=== PATIENT | male | born 1960 | race African-American/Black ===

== ENCOUNTER 2021-01-03 17:03 | Inpatient (IN) ==
[2021-01-03] MEDS ORDERED: Naloxone 0.4 MG/ML INJ IVP PRN (19:50)
[2021-01-03] MEDS ORDERED: Acetaminophen 325 MG TABLET PO PRN (19:50)
[2021-01-03] MEDS ORDERED: Ondansetron ODT 4 MG TAB.RAPDIS SL PRN (19:50)
[2021-01-03 20:33] LABS: Basophils % 0.2 %; Eosinophils % 0.1 %; Hematocrit 35.8 % (37.5-50.1); Hemoglobin 11.6 g/dL (12.9-16.9); Lymphocytes # 2.5 K/mcL (0.6-4.6); Lymphocytes % 20.8 %; Mean Corpuscular HGB Conc 32.4 g/dL (31.6-35.5); Mean Corpuscular Hemoglobin 26.2 pg (28.0-33.3); Mean Platelet Volume 10.2 fL (9.4-12.4); Monocytes # 1.6 K/mcL (0.0-1.3); Monocytes % 13.1 %; Neutrophils # 7.9 K/mcL (1.6-8.9); Platelet Count 254 K/mcL (140-400); Red Blood Count 4.42 M/mcL (4.19-5.50); Red Cell Distribution Width 14.7 % (11.5-14.5); Segmented Neutrophils % 64.8 %; White Blood Count 12.2 K/mcL (4.3-11.1)
[2021-01-03 20:53] LABS: Alanine Aminotransferase 13 Units/L (7-52); Albumin 3.7 g/dL (3.5-5.7); Alkaline Phosphatase 105 Units/L (34-104); Aspartate Amino Transferase 12 Units/L (13-39); BUN/Creatinine Ratio 11 (6-26); Bilirubin,Total 0.2 mg/dL (0.3-1.0); Blood Urea Nitrogen 8 mg/dL (6-20); Calcium 9.1 mg/dL (8.6-10.3); Carbon Dioxide 23 mEq/L (23-29); Chloride 104 mEq/L (98-107); Globulin 3.6 g/dL (2.4-3.5); Glucose 171 mg/dL (70-105); Osmolality,Calculated 288 (280-300); Potassium 4.3 mEq/L (3.5-5.1); Sodium 138 mEq/L (136-145); Total Protein 7.3 g/dL (6.4-8.9); eGFR For African Americans > 60 (> 60); eGFR For Non-African Americans > 60 (> 60)
[2021-01-03 21:38] LABS: Bilirubin,Urine Negative (Negative); Blood,Urine Negative (Negative); Clarity,Urine Clear (Clear); Color,Urine Yellow (Yellow); Glucose,Urine (UA) Normal (Normal); Ketones,Urine Negative (Negative); Leukocyte Esterase,Urine Negative (Negative); Nitrite,Urine Negative (Negative); Protein,Urine Trace mg/dL (Neg-Trace); Specific Gravity,Urine 1.019 (1.010-1.025); Urobilinogen,Urine Normal (Normal)
[2021-01-03] MEDS ORDERED: Ipratropium/Albuterol Neb 3 ML IH PRN (21:47)
[2021-01-03 22:15] LABS: Amphetamine Screen,Urine Negative ng/mL (Cutoff=1000); Barbiturate Screen,Urine Negative ng/mL (Cutoff=200); Benzodiazepines Screen,Urine Positive ng/mL (Cutoff=200); Cannabinoid Screen,Urine Negative ng/mL (Cutoff = 50); Cocaine Screen,Urine Negative ng/mL (Cutoff= 300); Opiate Screen,Urine Negative ng/mL (Cutoff=300); Phencyclidine Screen,Urine Negative ng/mL (Cutoff=25)
[2021-01-04] MEDS: MethylPREDNISolone 40 MG/ML VIAL IVP SCH ×2 (04:59→18:27)
[2021-01-04 07:10] LABS: Hematocrit 33.4 % (37.5-50.1); Hemoglobin 10.7 g/dL (12.9-16.9); Mean Corpuscular Hemoglobin 26.1 pg (28.0-33.3); Mean Corpuscular Volume 81.5 fL (83.0-100.0); Mean Platelet Volume 10.8 fL (9.4-12.4); Platelet Count 239 K/mcL (140-400); Red Cell Distribution Width 14.8 % (11.5-14.5); White Blood Count 9.1 K/mcL (4.3-11.1)
[2021-01-04 07:22] LABS: INR 1.4; Prothrombin Time 15.7 Seconds (9.4-12.1)
[2021-01-04 07:28] LABS: BUN/Creatinine Ratio 8 (6-26); Blood Urea Nitrogen 6 mg/dL (6-20); Calcium 8.9 mg/dL (8.6-10.3); Carbon Dioxide 23 mEq/L (23-29); Chloride 104 mEq/L (98-107); Glucose 148 mg/dL (70-105); Magnesium 1.2 mg/dL (1.6-2.6); Osmolality,Calculated 284 (280-300); Potassium 4.4 mEq/L (3.5-5.1); Sodium 137 mEq/L (136-145); eGFR For African Americans > 60 (> 60); eGFR For Non-African Americans > 60 (> 60)
[2021-01-04 07:40] LABS: Thyroid Stimulating Hormone 0.585 mcIU/mL (0.340-5.600)
[2021-01-04] MEDS ORDERED: *HR* Enoxaparin 30 MG/0.3 ML SYRINGE SQ SCH (09:00)
[2021-01-04] MEDS: levoFLOXacin 750 MG/150 ML 750 MG/150 ML BAG IVPB SCH (09:14)
[2021-01-04] MEDS ORDERED: Magnesium Sulfate 1 GM/102 ML PIGGYBACK IVPB ONE (09:52)
[2021-01-04] MEDS ORDERED: *HR* Dextrose 50 % in Water (Vial) 50 ML VIAL IVP PRN (11:20)
[2021-01-04] MEDS ORDERED: Dextrose Gel 15 GM/37.5 ML TUBE PO PRN ×2 (11:20)
[2021-01-04] MEDS ORDERED: D5% in Water 1,000 ML IVC PRN (11:20)
[2021-01-04] MEDS: Insulin LISPRO 300 UNITS/3 ML VIAL SUBQ SCH ×2 (12:43→17:02)
[2021-01-04] MEDS: Divalproex (24 HR) 500 MG TABLET PO SCH (20:04)
[2021-01-04] MEDS: LOXAPINE SUCCINATE 5 MG PO SCH (20:06)
[2021-01-04] MEDS: Gabapentin 100 MG CAPSULE PO SCH (20:06)
[2021-01-04] MEDS: Insulin DETEMIR 100 UNIT/ML X5UNITS SUBQ SCH (20:12)
[2021-01-05] MEDS: MethylPREDNISolone 40 MG/ML VIAL IVP SCH ×2 (04:53→17:25)
[2021-01-05] MEDS: Insulin LISPRO 300 UNITS/3 ML VIAL SUBQ SCH ×3 (07:50→16:08)
[2021-01-05] MEDS: Multivit/Ca/Min/Fe/FA 1 TAB TABLET PO SCH (07:51)
[2021-01-05] MEDS: Aspirin 81 MG TAB.CHEW PO SCH (07:51)
[2021-01-05] MEDS: amLODIPine 5 MG TABLET PO SCH (07:51)
[2021-01-05] MEDS: lisinopriL 10 MG TABLET PO SCH (07:51)
[2021-01-05] MEDS: Gabapentin 100 MG CAPSULE PO SCH ×2 (07:51→20:19)
[2021-01-05] MEDS: levoFLOXacin 750 MG/150 ML 750 MG/150 ML BAG IVPB SCH (07:52)
[2021-01-05] MEDS: *HR* Enoxaparin 40 MG/0.4 ML SYRINGE SQ SCH (08:02)
[2021-01-05 08:18] LABS: Hematocrit 34.4 % (37.5-50.1); Mean Corpuscular Volume 81.3 fL (83.0-100.0); Mean Platelet Volume 10.5 fL (9.4-12.4); Platelet Count 251 K/mcL (140-400); Red Blood Count 4.23 M/mcL (4.19-5.50); Red Cell Distribution Width 14.6 % (11.5-14.5); White Blood Count 8.3 K/mcL (4.3-11.1)
[2021-01-05 08:38] LABS: BUN/Creatinine Ratio 14 (6-26); Blood Urea Nitrogen 11 mg/dL (6-20); Calcium 9.4 mg/dL (8.6-10.3); Carbon Dioxide 26 mEq/L (23-29); Chloride 102 mEq/L (98-107); Glucose 160 mg/dL (70-105); Magnesium 1.5 mg/dL (1.6-2.6); Osmolality,Calculated 285 (280-300); Potassium 5.3 mEq/L (3.5-5.1); Sodium 136 mEq/L (136-145); eGFR For African Americans > 60 (> 60); eGFR For Non-African Americans > 60 (> 60)
[2021-01-05] MEDS: LOXAPINE SUCCINATE 5 MG PO SCH (10:56)
[2021-01-05] MEDS: Divalproex (24 HR) 500 MG TABLET PO SCH (20:19)
[2021-01-05] MEDS: Insulin DETEMIR 100 UNIT/ML X5UNITS SUBQ SCH (20:20)
[2021-01-06 02:05] LABS: Hematocrit 33.4 % (37.5-50.1); Hemoglobin 11.1 g/dL (12.9-16.9); Mean Corpuscular HGB Conc 33.2 g/dL (31.6-35.5); Mean Corpuscular Hemoglobin 26.9 pg (28.0-33.3); Mean Corpuscular Volume 81.1 fL (83.0-100.0); Mean Platelet Volume 10.6 fL (9.4-12.4); Platelet Count 260 K/mcL (140-400); Red Blood Count 4.12 M/mcL (4.19-5.50); Red Cell Distribution Width 14.6 % (11.5-14.5); White Blood Count 11.1 K/mcL (4.3-11.1)
[2021-01-06 02:30] LABS: BUN/Creatinine Ratio 19 (6-26); Blood Urea Nitrogen 15 mg/dL (6-20); Calcium 9.6 mg/dL (8.6-10.3); Carbon Dioxide 22 mEq/L (23-29); Chloride 99 mEq/L (98-107); Glucose 238 mg/dL (70-105); Magnesium 1.3 mg/dL (1.6-2.6); Osmolality,Calculated 287 (280-300); Potassium 4.9 mEq/L (3.5-5.1); Sodium 134 mEq/L (136-145); eGFR For African Americans > 60 (> 60); eGFR For Non-African Americans > 60 (> 60)
[2021-01-06] MEDS: LOXAPINE SUCCINATE 5 MG PO SCH ×2 (05:27→07:24)
[2021-01-06] MEDS: *HR* Enoxaparin 40 MG/0.4 ML SYRINGE SQ SCH (05:34)
[2021-01-06] MEDS: MethylPREDNISolone 40 MG/ML VIAL IVP SCH ×2 (05:34→16:43)
[2021-01-06] MEDS: Insulin LISPRO 300 UNITS/3 ML VIAL SUBQ SCH ×3 (07:24→16:43)
[2021-01-06] MEDS ORDERED: Magnesium Sulfate 1 GM/102 ML PIGGYBACK IVPB ONE (08:09)
[2021-01-06] MEDS: Gabapentin 100 MG CAPSULE PO SCH ×2 (08:26→20:54)
[2021-01-06] MEDS: amLODIPine 5 MG TABLET PO SCH (08:26)
[2021-01-06] MEDS: Multivit/Ca/Min/Fe/FA 1 TAB TABLET PO SCH (08:26)
[2021-01-06] MEDS: levoFLOXacin 750 MG/150 ML 750 MG/150 ML BAG IVPB SCH (08:26)
[2021-01-06] MEDS: lisinopriL 10 MG TABLET PO SCH (08:26)
[2021-01-06] MEDS: Aspirin 81 MG TAB.CHEW PO SCH (08:26)
[2021-01-06] MEDS: Divalproex (24 HR) 500 MG TABLET PO SCH (20:53)
[2021-01-06] MEDS: Insulin DETEMIR 100 UNIT/ML X5UNITS SUBQ SCH (20:54)
[2021-01-07] MEDS: LOXAPINE SUCCINATE 5 MG PO SCH ×2 (01:51→08:23)
[2021-01-07] MEDS: MethylPREDNISolone 40 MG/ML VIAL IVP SCH (05:57)
[2021-01-07] MEDS: *HR* Enoxaparin 40 MG/0.4 ML SYRINGE SQ SCH (05:57)
[2021-01-07 08:18] VITALS: BP 146/88; TEMP 98.4; O2SAT 92
[2021-01-07] MEDS: Insulin LISPRO 300 UNITS/3 ML VIAL SUBQ SCH (08:24)
[2021-01-07] MEDS: levoFLOXacin 750 MG/150 ML 750 MG/150 ML BAG IVPB SCH (08:24)
[2021-01-07] MEDS: lisinopriL 10 MG TABLET PO SCH (08:25)
[2021-01-07] MEDS: amLODIPine 5 MG TABLET PO SCH (08:25)
[2021-01-07] MEDS: Gabapentin 100 MG CAPSULE PO SCH (08:25)
[2021-01-07] MEDS: Multivit/Ca/Min/Fe/FA 1 TAB TABLET PO SCH (08:25)
[2021-01-07] MEDS: Aspirin 81 MG TAB.CHEW PO SCH (08:25)
[2021-01-07 08:50] VITALS: PULSE 71
== END 2021-01-07 11:03 | disposition other institution (70) | DRG 193 ==
LOC: 3BNU → SUATTDRO 18:14
PROVIDERS: ADMIT Student in an Organized Health Care Education/Training Program; ATTEND Nurse Practitioner

== ENCOUNTER 2021-04-15 01:38 | Inpatient (IN) ==
[2021-04-15] MEDS ORDERED: Isovue-370 500 ML BOTTLE IVP ONE (02:04)
[2021-04-15] MEDS ORDERED: 0.9 % Sodium Chloride 1,000 ML IVC ONE ×2 (02:05→03:31)
[2021-04-15 02:27] LABS: Basophils % 0.1 %; Hematocrit 39.9 % (37.5-50.1); Hemoglobin 12.7 g/dL (12.9-16.9); Immature Granulocytes % 1.8 % (0-4); Lymphocytes # 2.5 K/mcL (0.6-4.6); Lymphocytes % 11.5 %; Mean Corpuscular HGB Conc 31.8 g/dL (31.6-35.5); Mean Corpuscular Hemoglobin 27.9 pg (28.0-33.3); Mean Corpuscular Volume 87.7 fL (83.0-100.0); Monocytes % 14.1 %; Neutrophils # 15.4 K/mcL (1.6-8.9); Platelet Count 197 K/mcL (140-400); Red Blood Count 4.55 M/mcL (4.19-5.50); Red Cell Distribution Width 18.6 % (11.5-14.5); Segmented Neutrophils % 72.5 %
[2021-04-15 02:28] LABS: White Blood Count 21.3 K/mcL (4.3-11.1)
[2021-04-15 02:47] LABS: Troponin I 0.08 ng/mL (< 0.04)
[2021-04-15 02:48] LABS: BUN/Creatinine Ratio 11 (6-26); Blood Urea Nitrogen 10 mg/dL (8-23); Calcium 9.3 mg/dL (8.6-10.3); Carbon Dioxide 24 mEq/L (23-29); Chloride 100 mEq/L (98-107); Creatine Kinase 123 Units/L (30-223); Glucose 141 mg/dL (70-105); Osmolality,Calculated 275 (280-300); Potassium 4.4 mEq/L (3.5-5.1); Sodium 132 mEq/L (136-145); eGFR For African Americans > 60 (> 60); eGFR For Non-African Americans > 60 (> 60)
[2021-04-15] MEDS ORDERED: cefTRIAXone 1,000 MG in Water for inj. (sterile) 10 ML IVP ONE (03:05)
[2021-04-15 03:28] LABS: Bilirubin,Urine Negative (Negative); Blood,Urine Negative (Negative); Clarity,Urine Clear (Clear); Color,Urine Colorless (Yellow); Glucose,Urine (UA) Normal (Normal); Ketones,Urine Negative (Negative); Leukocyte Esterase,Urine Negative (Negative); Nitrite,Urine Negative (Negative); PH,Urine 6.5 pH Units (5.0-8.0); Protein,Urine Negative (Neg-Trace); Specific Gravity,Urine 1.028 (1.010-1.025); Urobilinogen,Urine Normal (Normal)
[2021-04-15] MEDS ORDERED: Azithromycin 250 MG TABLET PO ONE (03:46)
[2021-04-15 03:47] LABS: Influenza A PCR Negative (Negative); Influenza B PCR Negative (Negative); Resp. Syncytial Virus PCR Negative (Negative)
[2021-04-15 03:53] LABS: SARS-CoV-2 by PCR (In House) Negative (Negative)
[2021-04-15] MEDS ORDERED: Aspirin 325 MG TABLET PO ONE (03:56)
[2021-04-15] MEDS ORDERED: Metoprolol XL (24 HR) Succ 25 MG TAB.ER.24H PO SCH (04:07)
[2021-04-15] MEDS ORDERED: D5% in Water 1,000 ML IVC PRN (04:09)
[2021-04-15] MEDS ORDERED: Dextrose Gel 15 GM/37.5 ML TUBE PO PRN ×2 (04:09)
[2021-04-15] MEDS ORDERED: *HR* Dextrose 50 % in Water (Syg) 50 ML SYRINGE IVP PRN (04:09)
[2021-04-15] MEDS ORDERED: Perflutren Lipid Microsphere 1.3 ML in 0.9 % Sodium Chloride 8.7 ML IVP PRN (04:21)
[2021-04-15] MEDS: Metoprolol XL (24 HR) Succ 25 MG TAB.ER.24H PO SCH (05:13)
[2021-04-15 05:42] LABS: Amphetamine Screen,Urine Negative ng/mL (Cutoff=1000); Barbiturate Screen,Urine Negative ng/mL (Cutoff=200); Benzodiazepines Screen,Urine Negative ng/mL (Cutoff=200); Cannabinoid Screen,Urine Negative ng/mL (Cutoff = 50); Cocaine Screen,Urine Negative ng/mL (Cutoff= 300); Opiate Screen,Urine Negative ng/mL (Cutoff=300); Phencyclidine Screen,Urine Negative ng/mL (Cutoff=25)
[2021-04-15] MEDS: Insulin LISPRO 300 UNITS/3 ML VIAL SUBQ SCH ×4 (07:13→21:19)
[2021-04-15] MEDS: amLODIPine 5 MG TABLET PO SCH (07:36)
[2021-04-15] MEDS: Gabapentin 100 MG CAPSULE PO SCH ×2 (07:36→20:40)
[2021-04-15] MEDS: Multivit/Ca/Min/Fe/FA 1 TAB TABLET PO SCH (07:37)
[2021-04-15] MEDS: (Fish Oil 1,000 Mg Softgel) PO SCH (07:37)
[2021-04-15] MEDS: LOXAPINE SUCCINATE 5 MG PO SCH ×2 (07:37→21:22)
[2021-04-15] MEDS ORDERED: methylPREDNISolone 125 MG/2 ML VIAL IVP STA (08:01)
[2021-04-15] MEDS ORDERED: Levalbuterol Neb 1.25 MG/3 ML IH STA (08:01)
[2021-04-15 08:33] LABS: ABG Base Excess 2 mEq/L (-2 to 3); ABG HCO3 29 mEq/L (21-27); ABG Oxygen Saturation 95 % (95-98); ABG PCO2 52 mmHg (35-45); ABG PH 7.36 pH Units (7.32-7.45); ABG PO2 80 mmHg (85-104); ABG TCO2 30 mEq/L (20-26)
[2021-04-15] MEDS: Piperacillin/Tazobactam 3.375 GM in 0.9 % Sodium Chloride Mini Bag 100 ML IVPB SCH ×2 (08:41→17:08)
[2021-04-15 09:31] LABS: Troponin I 0.41 ng/mL (< 0.04)
[2021-04-15] MEDS: Vancomycin 1,500 MG/265 ML IV.SOLN IVPB SCH ×2 (10:10→20:40)
[2021-04-15] MEDS: Levalbuterol Neb 1.25 MG/3 ML IH SCH ×4 (11:55→23:23)
[2021-04-15] MEDS: MethylPREDNISolone 40 MG/ML VIAL IVP SCH (17:06)
[2021-04-15] MEDS ORDERED: Doxycycline 100 MG in 0.9 % Sodium Chloride Mini Bag 100 ML IVPB SCH (18:00)
[2021-04-15] MEDS: Divalproex (24 HR) 500 MG TABLET PO SCH (20:40)
[2021-04-16] MEDS ORDERED: cefTRIAXone 1,000 MG in Water for inj. (sterile) 10 ML IVP SCH
[2021-04-16] MEDS: MethylPREDNISolone 40 MG/ML VIAL IVP SCH ×2 (00:48→17:45)
[2021-04-16] MEDS: Piperacillin/Tazobactam 3.375 GM in 0.9 % Sodium Chloride Mini Bag 100 ML IVPB SCH ×3 (00:49→17:42)
[2021-04-16 03:21] LABS: Basophils % 0.1 %; Hematocrit 37.1 % (37.5-50.1); Hemoglobin 11.7 g/dL (12.9-16.9); Immature Granulocytes % 1.6 % (0-4); Lymphocytes # 1.7 K/mcL (0.6-4.6); Lymphocytes % 12.5 %; Mean Corpuscular HGB Conc 31.5 g/dL (31.6-35.5); Mean Corpuscular Hemoglobin 27.8 pg (28.0-33.3); Mean Corpuscular Volume 88.1 fL (83.0-100.0); Mean Platelet Volume 10.4 fL (9.4-12.4); Monocytes # 0.9 K/mcL (0.0-1.3); Monocytes % 6.2 %; Platelet Count 197 K/mcL (140-400); Red Blood Count 4.21 M/mcL (4.19-5.50); Red Cell Distribution Width 18.4 % (11.5-14.5); Segmented Neutrophils % 79.6 %; White Blood Count 13.8 K/mcL (4.3-11.1)
[2021-04-16 03:40] LABS: BUN/Creatinine Ratio 14 (6-26); Blood Urea Nitrogen 11 mg/dL (8-23); Calcium 9.3 mg/dL (8.6-10.3); Carbon Dioxide 29 mEq/L (23-29); Chloride 99 mEq/L (98-107); Glucose 160 mg/dL (70-105); Osmolality,Calculated 285 (280-300); Potassium 5.6 mEq/L (3.5-5.1); Sodium 136 mEq/L (136-145); eGFR For African Americans > 60 (> 60); eGFR For Non-African Americans > 60 (> 60)
[2021-04-16] MEDS: Levalbuterol Neb 1.25 MG/3 ML IH SCH ×6 (03:48→23:42)
[2021-04-16] MEDS ORDERED: Isovue-370 500 ML BOTTLE IVP ONE (07:59)
[2021-04-16] MEDS ORDERED: MethylPREDNISolone 40 MG/ML VIAL IVP ONE (08:30)
[2021-04-16] MEDS: Insulin LISPRO 300 UNITS/3 ML VIAL SUBQ SCH ×4 (10:10→19:54)
[2021-04-16] MEDS: LOXAPINE SUCCINATE 5 MG PO SCH ×2 (10:11→19:53)
[2021-04-16] MEDS: Aspirin 81 MG TAB.CHEW PO SCH (10:20)
[2021-04-16] MEDS: Metoprolol XL (24 HR) Succ 25 MG TAB.ER.24H PO SCH (10:20)
[2021-04-16] MEDS: amLODIPine 5 MG TABLET PO SCH (10:20)
[2021-04-16] MEDS: Gabapentin 100 MG CAPSULE PO SCH ×2 (10:20→19:52)
[2021-04-16] MEDS: Multivit/Ca/Min/Fe/FA 1 TAB TABLET PO SCH (10:20)
[2021-04-16] MEDS: Vancomycin 1,500 MG/265 ML IV.SOLN IVPB SCH (10:21)
[2021-04-16] MEDS: (Fish Oil 1,000 Mg Softgel) PO SCH (10:23)
[2021-04-16] MEDS: Divalproex (24 HR) 500 MG TABLET PO SCH (19:52)
[2021-04-17 01:49] LABS: Basophils % 0.1 %; Hematocrit 36.6 % (37.5-50.1); Hemoglobin 11.3 g/dL (12.9-16.9); Immature Granulocytes % 1.6 % (0-4); Lymphocytes # 2.1 K/mcL (0.6-4.6); Lymphocytes % 14.5 %; Mean Corpuscular HGB Conc 30.9 g/dL (31.6-35.5); Mean Corpuscular Hemoglobin 27.6 pg (28.0-33.3); Mean Corpuscular Volume 89.5 fL (83.0-100.0); Mean Platelet Volume 10.1 fL (9.4-12.4); Monocytes # 1.3 K/mcL (0.0-1.3); Monocytes % 8.8 %; Neutrophils # 11.1 K/mcL (1.6-8.9); Platelet Count 193 K/mcL (140-400); Red Blood Count 4.09 M/mcL (4.19-5.50); White Blood Count 14.7 K/mcL (4.3-11.1)
[2021-04-17 02:02] LABS: Alanine Aminotransferase 20 Units/L (7-52); Albumin 3.3 g/dL (3.5-5.7); Albumin/Globulin Ratio 1.2 (1.1-2.2); Alkaline Phosphatase 53 Units/L (34-104); Aspartate Amino Transferase 16 Units/L (13-39); BUN/Creatinine Ratio 14 (6-26); Bilirubin,Total 0.3 mg/dL (0.3-1.0); Blood Urea Nitrogen 12 mg/dL (8-23); Calcium 8.8 mg/dL (8.6-10.3); Carbon Dioxide 29 mEq/L (23-29); Chloride 100 mEq/L (98-107); Globulin 2.8 g/dL (2.4-3.5); Glucose 118 mg/dL (70-105); Osmolality,Calculated 283 (280-300); Sodium 136 mEq/L (136-145); Total Protein 6.1 g/dL (6.4-8.9); eGFR For African Americans > 60 (> 60); eGFR For Non-African Americans > 60 (> 60)
[2021-04-17] MEDS: Levalbuterol Neb 1.25 MG/3 ML IH SCH ×6 (03:26→23:47)
[2021-04-17] MEDS: MethylPREDNISolone 40 MG/ML VIAL IVP SCH ×2 (06:03→16:52)
[2021-04-17] MEDS: Piperacillin/Tazobactam 3.375 GM in 0.9 % Sodium Chloride Mini Bag 100 ML IVPB SCH ×3 (06:03→16:52)
[2021-04-17] MEDS: Insulin LISPRO 300 UNITS/3 ML VIAL SUBQ SCH ×4 (08:10→21:18)
[2021-04-17] MEDS: LOXAPINE SUCCINATE 5 MG PO SCH ×2 (08:11→21:51)
[2021-04-17] MEDS: Multivit/Ca/Min/Fe/FA 1 TAB TABLET PO SCH (08:15)
[2021-04-17] MEDS: Gabapentin 100 MG CAPSULE PO SCH ×2 (08:15→21:17)
[2021-04-17] MEDS: amLODIPine 5 MG TABLET PO SCH (08:15)
[2021-04-17] MEDS: Aspirin 81 MG TAB.CHEW PO SCH (08:15)
[2021-04-17] MEDS: Metoprolol XL (24 HR) Succ 25 MG TAB.ER.24H PO SCH (08:15)
[2021-04-17] MEDS ORDERED: Insulin Human Regular 10 UNIT in 0.9 % Sodium Chloride 10 ML IV ONE ×2 (08:55→16:19)
[2021-04-17] MEDS ORDERED: *HR* Dextrose 50 % in Water (Syg) 50 ML SYRINGE IVP ONE ×2 (08:55→16:19)
[2021-04-17] MEDS ORDERED: lisinopriL 20 MG TABLET PO SCH (09:00)
[2021-04-17] MEDS ORDERED: Vancomycin 1,500 MG/265 ML IV.SOLN IVPB SCH (11:00)
[2021-04-17] MEDS: Azithromycin 250 MG TABLET PO SCH (12:45)
[2021-04-17 16:13] LABS: Potassium 6.7 mEq/L (3.5-5.1)
[2021-04-17] MEDS ORDERED: SODIUM ZIRCONIUM CYCLOSILICATE 5 GM POWD.PACK PO ONE (16:22)
[2021-04-17] MEDS: Divalproex (24 HR) 500 MG TABLET PO SCH (21:18)
[2021-04-17 21:25] LABS: Uric Acid 5.1 mg/dL (2.3-7.6)
[2021-04-18] MEDS: Piperacillin/Tazobactam 3.375 GM in 0.9 % Sodium Chloride Mini Bag 100 ML IVPB SCH ×3 (00:06→17:15)
[2021-04-18 01:28] LABS: Alanine Aminotransferase 23 Units/L (7-52); Albumin 3.2 g/dL (3.5-5.7); Albumin/Globulin Ratio 1.1 (1.1-2.2); Alkaline Phosphatase 52 Units/L (34-104); Aspartate Amino Transferase 17 Units/L (13-39); BUN/Creatinine Ratio 15 (6-26); Bilirubin,Total 0.3 mg/dL (0.3-1.0); Blood Urea Nitrogen 13 mg/dL (8-23); Calcium 8.6 mg/dL (8.6-10.3); Carbon Dioxide 27 mEq/L (23-29); Chloride 96 mEq/L (98-107); Globulin 2.8 g/dL (2.4-3.5); Glucose 268 mg/dL (70-105); Osmolality,Calculated 286 (280-300); Potassium 4.9 mEq/L (3.5-5.1); Sodium 133 mEq/L (136-145); eGFR For African Americans > 60 (> 60); eGFR For Non-African Americans > 60 (> 60)
[2021-04-18 01:43] LABS: Basophils % 0.1 %; Hematocrit 35.4 % (37.5-50.1); Hemoglobin 11.4 g/dL (12.9-16.9); Lymphocytes # 2.5 K/mcL (0.6-4.6); Lymphocytes % 18.1 %; Mean Corpuscular HGB Conc 32.2 g/dL (31.6-35.5); Mean Corpuscular Hemoglobin 28.9 pg (28.0-33.3); Mean Corpuscular Volume 89.6 fL (83.0-100.0); Mean Platelet Volume 10.5 fL (9.4-12.4); Monocytes # 1.3 K/mcL (0.0-1.3); Monocytes % 9.6 %; Neutrophils # 9.7 K/mcL (1.6-8.9); Platelet Count 199 K/mcL (140-400); Red Blood Count 3.95 M/mcL (4.19-5.50); Red Cell Distribution Width 17.2 % (11.5-14.5); Segmented Neutrophils % 71.2 %; White Blood Count 13.6 K/mcL (4.3-11.1)
[2021-04-18] MEDS: Levalbuterol Neb 1.25 MG/3 ML IH SCH ×6 (03:35→23:53)
[2021-04-18] MEDS: MethylPREDNISolone 40 MG/ML VIAL IVP SCH ×2 (06:06→17:15)
[2021-04-18] MEDS: Insulin LISPRO 300 UNITS/3 ML VIAL SUBQ SCH ×4 (07:48→21:36)
[2021-04-18] MEDS: Gabapentin 100 MG CAPSULE PO SCH ×2 (08:47→21:36)
[2021-04-18] MEDS: amLODIPine 5 MG TABLET PO SCH (08:47)
[2021-04-18] MEDS: Multivit/Ca/Min/Fe/FA 1 TAB TABLET PO SCH (08:48)
[2021-04-18] MEDS: Aspirin 81 MG TAB.CHEW PO SCH (08:48)
[2021-04-18] MEDS: LOXAPINE SUCCINATE 5 MG PO SCH ×2 (08:48→21:37)
[2021-04-18] MEDS: Metoprolol XL (24 HR) Succ 25 MG TAB.ER.24H PO SCH (08:48)
[2021-04-18] MEDS: Azithromycin 250 MG TABLET PO SCH (11:30)
[2021-04-18] MEDS: Divalproex (24 HR) 500 MG TABLET PO SCH (21:36)
[2021-04-19] MEDS: Piperacillin/Tazobactam 3.375 GM in 0.9 % Sodium Chloride Mini Bag 100 ML IVPB SCH ×4 (00:38→23:44)
[2021-04-19] MEDS ORDERED: Levalbuterol Neb 1.25 MG/3 ML IH PRN (00:44)
[2021-04-19] MEDS: MethylPREDNISolone 40 MG/ML VIAL IVP SCH ×2 (05:36→17:05)
[2021-04-19 06:01] LABS: Basophils % 0.1 %; Eosinophils % 0.1 %; Hematocrit 37.3 % (37.5-50.1); Hemoglobin 11.7 g/dL (12.9-16.9); Immature Granulocytes % 0.8 % (0-4); Lymphocytes # 3.2 K/mcL (0.6-4.6); Lymphocytes % 26.5 %; Mean Corpuscular HGB Conc 31.4 g/dL (31.6-35.5); Mean Corpuscular Hemoglobin 27.7 pg (28.0-33.3); Mean Corpuscular Volume 88.2 fL (83.0-100.0); Mean Platelet Volume 10.1 fL (9.4-12.4); Monocytes # 1.6 K/mcL (0.0-1.3); Monocytes % 13.1 %; Neutrophils # 7.1 K/mcL (1.6-8.9); Platelet Count 189 K/mcL (140-400); Red Blood Count 4.23 M/mcL (4.19-5.50); Red Cell Distribution Width 17.2 % (11.5-14.5); Segmented Neutrophils % 59.4 %
[2021-04-19 06:10] LABS: INR 1.1
[2021-04-19 06:22] LABS: Alanine Aminotransferase 23 Units/L (7-52); Albumin 3.5 g/dL (3.5-5.7); Albumin/Globulin Ratio 1.4 (1.1-2.2); Alkaline Phosphatase 48 Units/L (34-104); Aspartate Amino Transferase 12 Units/L (13-39); BUN/Creatinine Ratio 18 (6-26); Bilirubin,Total 0.4 mg/dL (0.3-1.0); Blood Urea Nitrogen 12 mg/dL (8-23); Calcium 9.2 mg/dL (8.6-10.3); Carbon Dioxide 34 mEq/L (23-29); Chloride 98 mEq/L (98-107); Globulin 2.5 g/dL (2.4-3.5); Glucose 127 mg/dL (70-105); Osmolality,Calculated 287 (280-300); Potassium 4.5 mEq/L (3.5-5.1); Sodium 138 mEq/L (136-145); eGFR For African Americans > 60 (> 60); eGFR For Non-African Americans > 60 (> 60)
[2021-04-19] MEDS: Insulin LISPRO 300 UNITS/3 ML VIAL SUBQ SCH ×4 (10:37→21:28)
[2021-04-19] MEDS: amLODIPine 5 MG TABLET PO SCH (10:53)
[2021-04-19] MEDS: Multivit/Ca/Min/Fe/FA 1 TAB TABLET PO SCH (10:53)
[2021-04-19] MEDS: Gabapentin 100 MG CAPSULE PO SCH ×2 (10:53→21:28)
[2021-04-19] MEDS: Azithromycin 250 MG TABLET PO SCH (10:54)
[2021-04-19] MEDS: Aspirin 81 MG TAB.CHEW PO SCH (10:54)
[2021-04-19] MEDS: Metoprolol XL (24 HR) Succ 25 MG TAB.ER.24H PO SCH (10:54)
[2021-04-19] MEDS ORDERED: *HR* Propofol 200 MG/20 ML VIAL IVP ONE ×2 (11:26→11:51)
[2021-04-19] MEDS ORDERED: EPHEDrine 50 MG/ML VIAL IVP ONE (11:26)
[2021-04-19] MEDS ORDERED: *HR* Succinylcholine 200 MG/10 ML VIAL IVP ONE (11:26)
[2021-04-19] MEDS ORDERED: *HR* FentaNYL (PF) 100 MCG/2 ML VIAL ONE ×2 (11:51→12:15)
[2021-04-19] MEDS ORDERED: Lidocaine -MPF 2% 5 ML VIAL ONE ×2 (11:55→12:15)
[2021-04-19] MEDS ORDERED: Ondansetron 4 MG/2 ML VIAL ONE ×2 (11:55→12:15)
[2021-04-19] MEDS: LOXAPINE SUCCINATE 5 MG PO SCH ×2 (12:15→21:18)
[2021-04-19] MEDS ORDERED: *HR* Metoprolol 5 MG/5 ML VIAL IVP ONE (13:15)
[2021-04-19 14:42] LABS: Immunoglobulin A 290 mg/dL (68-408); Immunoglobulin G 693 mg/dL (768-1632); Immunoglobulin M 73 mg/dL (35-263)
[2021-04-19 15:12] LABS: Source of Body Fluid RIGHT MIDDLE LUNG
[2021-04-19 16:53] LABS: Appearance of Body Fluid Clear (Clear); Volume of Body Fluid 17 mL
[2021-04-19] MEDS: Divalproex (24 HR) 500 MG TABLET PO SCH (21:28)
[2021-04-20] MEDS: MethylPREDNISolone 40 MG/ML VIAL IVP SCH ×2 (05:22→18:15)
[2021-04-20] MEDS: Insulin LISPRO 300 UNITS/3 ML VIAL SUBQ SCH ×4 (08:04→20:51)
[2021-04-20] MEDS: Piperacillin/Tazobactam 3.375 GM in 0.9 % Sodium Chloride Mini Bag 100 ML IVPB SCH (08:05)
[2021-04-20] MEDS: Multivit/Ca/Min/Fe/FA 1 TAB TABLET PO SCH (08:06)
[2021-04-20] MEDS: Metoprolol XL (24 HR) Succ 25 MG TAB.ER.24H PO SCH (08:06)
[2021-04-20] MEDS: Gabapentin 100 MG CAPSULE PO SCH ×2 (08:06→20:53)
[2021-04-20] MEDS: Aspirin 81 MG TAB.CHEW PO SCH (08:06)
[2021-04-20] MEDS: LOXAPINE SUCCINATE 5 MG PO SCH ×2 (08:07→22:22)
[2021-04-20] MEDS: amLODIPine 5 MG TABLET PO SCH (08:07)
[2021-04-20] MEDS: Azithromycin 250 MG TABLET PO SCH (11:39)
[2021-04-20] MEDS: Divalproex (24 HR) 500 MG TABLET PO SCH (20:52)
[2021-04-21] MEDS: MethylPREDNISolone 40 MG/ML VIAL IVP SCH ×2 (06:05→17:24)
[2021-04-21] MEDS: Gabapentin 100 MG CAPSULE PO SCH ×2 (09:21→21:27)
[2021-04-21] MEDS: Aspirin 81 MG TAB.CHEW PO SCH (09:21)
[2021-04-21] MEDS: Metoprolol XL (24 HR) Succ 25 MG TAB.ER.24H PO SCH (09:21)
[2021-04-21] MEDS: Multivit/Ca/Min/Fe/FA 1 TAB TABLET PO SCH (09:21)
[2021-04-21] MEDS: amLODIPine 5 MG TABLET PO SCH (09:21)
[2021-04-21] MEDS: LOXAPINE SUCCINATE 5 MG PO SCH ×2 (09:21→22:15)
[2021-04-21] MEDS: Insulin LISPRO 300 UNITS/3 ML VIAL SUBQ SCH ×4 (09:26→21:26)
[2021-04-21 12:21] LABS: Ribonucleic Protein IgG-Sm/RNP 2; Ribosomal P Protein Antibody 3 AU/mL (0-40); SSA 52 (Anti-RO) Antibody 1 AU/mL (0-40); SSA 60 (Anti-RO) Antibody 0 AU/mL (0-40)
[2021-04-21] MEDS: Divalproex (24 HR) 500 MG TABLET PO SCH (21:27)
[2021-04-22] MEDS: MethylPREDNISolone 40 MG/ML VIAL IVP SCH ×2 (06:09→17:20)
[2021-04-22] MEDS: Insulin LISPRO 300 UNITS/3 ML VIAL SUBQ SCH ×4 (08:10→20:55)
[2021-04-22] MEDS: Metoprolol XL (24 HR) Succ 25 MG TAB.ER.24H PO SCH (09:10)
[2021-04-22] MEDS: Multivit/Ca/Min/Fe/FA 1 TAB TABLET PO SCH (09:10)
[2021-04-22] MEDS: amLODIPine 5 MG TABLET PO SCH (09:10)
[2021-04-22] MEDS: Gabapentin 100 MG CAPSULE PO SCH ×2 (09:10→20:53)
[2021-04-22] MEDS: Aspirin 81 MG TAB.CHEW PO SCH (09:10)
[2021-04-22] MEDS: LOXAPINE SUCCINATE 5 MG PO SCH ×2 (09:11→21:46)
[2021-04-22] MEDS: Divalproex (24 HR) 500 MG TABLET PO SCH (20:53)
[2021-04-23 09:24] LABS: Hematocrit 43.4 % (37.5-50.1); Hemoglobin 14.5 g/dL (12.9-16.9); Mean Corpuscular HGB Conc 33.4 g/dL (31.6-35.5); Mean Corpuscular Hemoglobin 28.6 pg (28.0-33.3); Mean Corpuscular Volume 85.6 fL (83.0-100.0); Mean Platelet Volume 10.8 fL (9.4-12.4); Platelet Count 218 K/mcL (140-400); Red Blood Count 5.07 M/mcL (4.19-5.50); Red Cell Distribution Width 16.6 % (11.5-14.5); White Blood Count 15.6 K/mcL (4.3-11.1)
[2021-04-23 09:48] LABS: BUN/Creatinine Ratio 29 (6-26); Blood Urea Nitrogen 16 mg/dL (8-23); Calcium 9.7 mg/dL (8.6-10.3); Carbon Dioxide 28 mEq/L (23-29); Chloride 97 mEq/L (98-107); Glucose 159 mg/dL (70-105); Osmolality,Calculated 283 (280-300); Potassium 4.1 mEq/L (3.5-5.1); Sodium 134 mEq/L (136-145); eGFR For African Americans > 60 (> 60); eGFR For Non-African Americans > 60 (> 60)
[2021-04-23] MEDS: Metoprolol XL (24 HR) Succ 25 MG TAB.ER.24H PO SCH (10:22)
[2021-04-23] MEDS: amLODIPine 5 MG TABLET PO SCH (10:22)
[2021-04-23] MEDS: predniSONE 20 MG TABLET PO SCH (10:22)
[2021-04-23] MEDS: Multivit/Ca/Min/Fe/FA 1 TAB TABLET PO SCH (10:22)
[2021-04-23] MEDS: Gabapentin 100 MG CAPSULE PO SCH ×2 (10:22→22:29)
[2021-04-23] MEDS: Aspirin 81 MG TAB.CHEW PO SCH (10:22)
[2021-04-23] MEDS: LOXAPINE SUCCINATE 5 MG PO SCH ×2 (10:22→22:30)
[2021-04-23] MEDS: Insulin LISPRO 300 UNITS/3 ML VIAL SUBQ SCH ×4 (10:23→22:29)
[2021-04-23] MEDS: Divalproex (24 HR) 500 MG TABLET PO SCH (22:29)
[2021-04-24 05:54] LABS: Hematocrit 42.6 % (37.5-50.1); Hemoglobin 14.1 g/dL (12.9-16.9); Mean Corpuscular HGB Conc 33.1 g/dL (31.6-35.5); Mean Corpuscular Hemoglobin 28.8 pg (28.0-33.3); Mean Corpuscular Volume 87.1 fL (83.0-100.0); Mean Platelet Volume 11.2 fL (9.4-12.4); Platelet Count 196 K/mcL (140-400); Red Blood Count 4.89 M/mcL (4.19-5.50); Red Cell Distribution Width 16.4 % (11.5-14.5); White Blood Count 16.8 K/mcL (4.3-11.1)
[2021-04-24 06:17] LABS: BUN/Creatinine Ratio 23 (6-26); Blood Urea Nitrogen 18 mg/dL (8-23); Calcium 9.4 mg/dL (8.6-10.3); Carbon Dioxide 28 mEq/L (23-29); Chloride 98 mEq/L (98-107); Glucose 153 mg/dL (70-105); Osmolality,Calculated 287 (280-300); Potassium 4.4 mEq/L (3.5-5.1); Sodium 136 mEq/L (136-145); eGFR For African Americans > 60 (> 60); eGFR For Non-African Americans > 60 (> 60)
[2021-04-24 07:22] VITALS: BP 134/83; PULSE 70; TEMP 98.5; O2SAT 99
[2021-04-24] MEDS: Insulin LISPRO 300 UNITS/3 ML VIAL SUBQ SCH (07:30)
[2021-04-24] MEDS: predniSONE 20 MG TABLET PO SCH (10:00)
[2021-04-24] MEDS: Multivit/Ca/Min/Fe/FA 1 TAB TABLET PO SCH (10:00)
[2021-04-24] MEDS: Gabapentin 100 MG CAPSULE PO SCH (10:00)
[2021-04-24] MEDS: LOXAPINE SUCCINATE 5 MG PO SCH (10:00)
[2021-04-24] MEDS: Aspirin 81 MG TAB.CHEW PO SCH (10:00)
[2021-04-24] MEDS: Metoprolol XL (24 HR) Succ 25 MG TAB.ER.24H PO SCH (10:00)
[2021-04-24] MEDS: amLODIPine 5 MG TABLET PO SCH (10:00)
== END 2021-04-24 11:00 | DRG 853 ==
LOC: EMEROOARM 01:38 → 3BNU 01:38 → SUATTDRO 04:26 → 3BNU 04:49 → SUATTDRO 04-16 14:34
PROVIDERS: ADMIT Internal Medicine; ATTEND Registered Nurse
PROC: ENDOBBX (2021-04-19 11:45)

== ENCOUNTER 2021-07-26 16:08 | Inpatient (IN) ==
[2021-07-26 18:13] LABS: Basophils % 0.3 %; Eosinophils % 0.1 %; Hematocrit 39.1 % (37.5-50.1); Hemoglobin 12.8 g/dL (12.9-16.9); Immature Granulocytes % 1.1 % (0-4); Lymphocytes # 4.2 K/mcL (0.6-4.6); Lymphocytes % 32.2 %; Mean Corpuscular HGB Conc 32.7 g/dL (31.6-35.5); Mean Corpuscular Hemoglobin 28.7 pg (28.0-33.3); Mean Corpuscular Volume 87.7 fL (83.0-100.0); Mean Platelet Volume 10.9 fL (9.4-12.4); Neutrophils # 6.7 K/mcL (1.6-8.9); Platelet Count 194 K/mcL (140-400); Red Blood Count 4.46 M/mcL (4.19-5.50); Red Cell Distribution Width 14.4 % (11.5-14.5); Segmented Neutrophils % 51.3 %; White Blood Count 13.1 K/mcL (4.3-11.1)
[2021-07-26 18:16] LABS: BUN/Creatinine Ratio 14 (6-26); Blood Urea Nitrogen 10 mg/dL (8-23); Calcium 9.3 mg/dL (8.6-10.3); Carbon Dioxide 25 mEq/L (23-29); Chloride 101 mEq/L (98-107); Glucose 122 mg/dL (70-105); Osmolality,Calculated 280 (280-300); Potassium 4.9 mEq/L (3.5-5.1); Sodium 135 mEq/L (136-145); Troponin I 0.03 ng/mL (< 0.04); eGFR For African Americans > 60 (> 60); eGFR For Non-African Americans > 60 (> 60)
[2021-07-26] MEDS ORDERED: Naloxone 0.4 MG/ML INJ IVP PRN (20:01)
[2021-07-26] MEDS ORDERED: *HR* HYDROcodone/Acet 5/325 mg TABLET PO PRN (20:01)
[2021-07-26] MEDS ORDERED: Melatonin 3 MG TABLET PO PRN (20:01)
[2021-07-26] MEDS ORDERED: Ondansetron ODT 4 MG TAB.RAPDIS SL PRN (20:01)
[2021-07-26] MEDS ORDERED: *HR* OxyCODONE Immed Rel 5 MG TABLET PO PRN (20:01)
[2021-07-26] MEDS ORDERED: Acetaminophen 325 MG TABLET PO PRN (20:01)
[2021-07-26] MEDS ORDERED: *HR* Labetalol 20 MG/4 ML SYRINGE IVP ONE (21:05)
[2021-07-26] MEDS ORDERED: *HR* Dextrose 50 % in Water (Syg) 50 ML SYRINGE IVP PRN (21:10)
[2021-07-26] MEDS ORDERED: D5% in Water 1,000 ML IVC PRN (21:10)
[2021-07-26] MEDS ORDERED: Dextrose Gel 15 GM/37.5 ML TUBE PO PRN ×2 (21:10)
[2021-07-26 21:13] LABS: Influenza A PCR Negative (Negative); Influenza B PCR Negative (Negative); Resp. Syncytial Virus PCR Negative (Negative)
[2021-07-26 21:14] LABS: SARS-CoV-2 by PCR (In House) Negative (Negative)
[2021-07-26] MEDS: Insulin LISPRO 300 UNITS/3 ML VIAL SUBQ SCH (21:21)
[2021-07-26] MEDS ORDERED: Ipratropium/Albuterol Neb 3 ML IH PRN (21:22)
[2021-07-26 22:21] LABS: ABG Base Excess 2 mEq/L (-2 to 3); ABG HCO3 27 mEq/L (21-27); ABG Oxygen Saturation 91 % (95-98); ABG PCO2 45 mmHg (35-45); ABG PH 7.39 pH Units (7.32-7.45); ABG PO2 62 mmHg (85-104); ABG TCO2 29 mEq/L (20-26)
[2021-07-26] MEDS: Gabapentin 100 MG CAPSULE PO SCH (22:51)
[2021-07-26] MEDS: Divalproex (24 HR) 500 MG TABLET PO SCH (22:51)
[2021-07-27 01:59] LABS: Hematocrit 39.3 % (37.5-50.1); Hemoglobin 12.6 g/dL (12.9-16.9); Mean Corpuscular HGB Conc 32.1 g/dL (31.6-35.5); Mean Corpuscular Volume 87.3 fL (83.0-100.0); Mean Platelet Volume 10.3 fL (9.4-12.4); Platelet Count 180 K/mcL (140-400); Red Cell Distribution Width 14.6 % (11.5-14.5); White Blood Count 12.1 K/mcL (4.3-11.1)
[2021-07-27 02:20] LABS: Alanine Aminotransferase 22 Units/L (7-52); Albumin 3.8 g/dL (3.5-5.7); Albumin/Globulin Ratio 1.3 (1.1-2.2); Alkaline Phosphatase 77 Units/L (34-104); Aspartate Amino Transferase 15 Units/L (13-39); BUN/Creatinine Ratio 13 (6-26); Bilirubin,Total 0.3 mg/dL (0.3-1.0); Blood Urea Nitrogen 10 mg/dL (8-23); Calcium 9.3 mg/dL (8.6-10.3); Carbon Dioxide 28 mEq/L (23-29); Chloride 102 mEq/L (98-107); Chol/HDL Ratio 2.6 (0-4.9); Cholesterol 160 mg/dL (< 200); Globulin 2.9 g/dL (2.4-3.5); Glucose 142 mg/dL (70-105); HDL Cholesterol 62 mg/dL (40-59); LDL Cholesterol,Calculated 69 mg/dL (< 100); Magnesium 1.3 mg/dL (1.6-2.6); Osmolality,Calculated 287 (280-300); Sodium 138 mEq/L (136-145); Total Protein 6.7 g/dL (6.4-8.9); Triglycerides 147 mg/dL (< 150); eGFR For African Americans > 60 (> 60); eGFR For Non-African Americans > 60 (> 60)
[2021-07-27] MEDS: Insulin LISPRO 300 UNITS/3 ML VIAL SUBQ SCH ×4 (08:11→19:58)
[2021-07-27] MEDS: Alogliptin Benzoate [Alogliptin] 25 MG PO SCH (08:12)
[2021-07-27] MEDS: LOXAPINE SUCCINATE 5 MG PO SCH ×2 (08:12→19:59)
[2021-07-27] MEDS: amLODIPine 5 MG TABLET PO SCH (08:33)
[2021-07-27] MEDS: Loratadine 10 MG TABLET PO SCH (08:33)
[2021-07-27] MEDS: Aspirin 81 MG TAB.CHEW PO SCH (08:33)
[2021-07-27] MEDS: Gabapentin 100 MG CAPSULE PO SCH ×2 (08:33→19:58)
[2021-07-27] MEDS: MethylPREDNISolone 40 MG/ML VIAL IVP SCH ×2 (08:35→17:02)
[2021-07-27] MEDS ORDERED: predniSONE 20 MG TABLET PO SCH (09:00)
[2021-07-27] MEDS: Azithromycin 250 MG TABLET PO SCH (10:14)
[2021-07-27] MEDS: *HR* Enoxaparin 40 MG/0.4 ML SYRINGE SQ SCH (10:16)
[2021-07-27] MEDS: Ipratropium/Albuterol Neb 3 ML IH SCH ×3 (10:46→20:38)
[2021-07-27] MEDS: Divalproex (24 HR) 500 MG TABLET PO SCH (19:58)
[2021-07-28] MEDS: Ipratropium/Albuterol Neb 3 ML IH SCH ×7 (00:27→20:26)
[2021-07-28] MEDS: MethylPREDNISolone 40 MG/ML VIAL IVP SCH ×2 (04:53→16:42)
[2021-07-28] MEDS: *HR* Enoxaparin 40 MG/0.4 ML SYRINGE SQ SCH (04:53)
[2021-07-28 05:30] LABS: BUN/Creatinine Ratio 22 (6-26); Blood Urea Nitrogen 19 mg/dL (8-23); Calcium 9.3 mg/dL (8.6-10.3); Carbon Dioxide 29 mEq/L (23-29); Chloride 100 mEq/L (98-107); Glucose 133 mg/dL (70-105); Osmolality,Calculated 286 (280-300); Potassium 5.9 mEq/L (3.5-5.1); Sodium 136 mEq/L (136-145); eGFR For African Americans > 60 (> 60); eGFR For Non-African Americans > 60 (> 60)
[2021-07-28 07:02] LABS: Basophils % 0.1 %; Hematocrit 42.3 % (37.5-50.1); Hemoglobin 13.5 g/dL (12.9-16.9); Lymphocytes # 2.8 K/mcL (0.6-4.6); Lymphocytes % 22.5 %; Mean Corpuscular HGB Conc 31.9 g/dL (31.6-35.5); Mean Corpuscular Hemoglobin 28.8 pg (28.0-33.3); Mean Corpuscular Volume 90.4 fL (83.0-100.0); Mean Platelet Volume 11.1 fL (9.4-12.4); Monocytes # 0.9 K/mcL (0.0-1.3); Monocytes % 7.1 %; Neutrophils # 8.6 K/mcL (1.6-8.9); Platelet Count 212 K/mcL (140-400); Red Blood Count 4.68 M/mcL (4.19-5.50); Red Cell Distribution Width 14.6 % (11.5-14.5); Segmented Neutrophils % 69.3 %; White Blood Count 12.4 K/mcL (4.3-11.1)
[2021-07-28] MEDS: Insulin LISPRO 300 UNITS/3 ML VIAL SUBQ SCH ×4 (08:11→19:25)
[2021-07-28] MEDS: Azithromycin 250 MG TABLET PO SCH (08:53)
[2021-07-28] MEDS: Gabapentin 100 MG CAPSULE PO SCH ×2 (08:53→19:24)
[2021-07-28] MEDS: Aspirin 81 MG TAB.CHEW PO SCH (08:53)
[2021-07-28] MEDS: LOXAPINE SUCCINATE 5 MG PO SCH ×2 (08:54→19:30)
[2021-07-28] MEDS: amLODIPine 5 MG TABLET PO SCH (08:54)
[2021-07-28] MEDS: Loratadine 10 MG TABLET PO SCH (08:54)
[2021-07-28] MEDS: Alogliptin Benzoate [Alogliptin] 25 MG PO SCH (08:54)
[2021-07-28] MEDS: Divalproex (24 HR) 500 MG TABLET PO SCH (19:25)
[2021-07-29 01:42] LABS: Hematocrit 37.9 % (37.5-50.1); Hemoglobin 12.4 g/dL (12.9-16.9); Mean Corpuscular HGB Conc 32.7 g/dL (31.6-35.5); Mean Corpuscular Hemoglobin 29.1 pg (28.0-33.3); Mean Platelet Volume 11.1 fL (9.4-12.4); Platelet Count 201 K/mcL (140-400); Red Blood Count 4.26 M/mcL (4.19-5.50); Red Cell Distribution Width 14.6 % (11.5-14.5); White Blood Count 12.2 K/mcL (4.3-11.1)
[2021-07-29 01:56] LABS: BUN/Creatinine Ratio 21 (6-26); Blood Urea Nitrogen 16 mg/dL (8-23); Calcium 8.9 mg/dL (8.6-10.3); Carbon Dioxide 25 mEq/L (23-29); Chloride 102 mEq/L (98-107); Glucose 174 mg/dL (70-105); Osmolality,Calculated 285 (280-300); Potassium 5.3 mEq/L (3.5-5.1); Sodium 135 mEq/L (136-145); eGFR For African Americans > 60 (> 60); eGFR For Non-African Americans > 60 (> 60)
[2021-07-29] MEDS: Ipratropium/Albuterol Neb 3 ML IH SCH ×5 (03:45→19:30)
[2021-07-29] MEDS: MethylPREDNISolone 40 MG/ML VIAL IVP SCH ×2 (04:55→17:02)
[2021-07-29] MEDS: *HR* Enoxaparin 40 MG/0.4 ML SYRINGE SQ SCH (04:55)
[2021-07-29] MEDS: Alogliptin Benzoate [Alogliptin] 25 MG PO SCH (07:51)
[2021-07-29] MEDS: LOXAPINE SUCCINATE 5 MG PO SCH ×2 (07:51→19:59)
[2021-07-29] MEDS: Azithromycin 250 MG TABLET PO SCH (09:00)
[2021-07-29] MEDS: Loratadine 10 MG TABLET PO SCH (09:00)
[2021-07-29] MEDS: Insulin LISPRO 300 UNITS/3 ML VIAL SUBQ SCH ×4 (09:00→19:58)
[2021-07-29] MEDS: Gabapentin 100 MG CAPSULE PO SCH ×2 (09:00→19:58)
[2021-07-29] MEDS: amLODIPine 5 MG TABLET PO SCH (09:00)
[2021-07-29] MEDS: Aspirin 81 MG TAB.CHEW PO SCH (09:00)
[2021-07-29] MEDS: Divalproex (24 HR) 500 MG TABLET PO SCH (19:58)
[2021-07-30] MEDS: Ipratropium/Albuterol Neb 3 ML IH SCH (00:01)
[2021-07-30] MEDS ORDERED: Ipratropium/Albuterol Neb 3 ML IH PRN (00:35)
[2021-07-30] MEDS: MethylPREDNISolone 40 MG/ML VIAL IVP SCH (05:37)
[2021-07-30] MEDS: *HR* Enoxaparin 40 MG/0.4 ML SYRINGE SQ SCH (05:38)
[2021-07-30] MEDS: Insulin LISPRO 300 UNITS/3 ML VIAL SUBQ SCH ×4 (08:38→19:45)
[2021-07-30] MEDS: LOXAPINE SUCCINATE 5 MG PO SCH ×2 (08:39→19:45)
[2021-07-30] MEDS: Alogliptin Benzoate [Alogliptin] 25 MG PO SCH (08:39)
[2021-07-30] MEDS: amLODIPine 5 MG TABLET PO SCH (09:19)
[2021-07-30] MEDS: Gabapentin 100 MG CAPSULE PO SCH ×2 (09:19→19:44)
[2021-07-30] MEDS: Loratadine 10 MG TABLET PO SCH (09:19)
[2021-07-30] MEDS: Azithromycin 250 MG TABLET PO SCH (09:20)
[2021-07-30] MEDS: Aspirin 81 MG TAB.CHEW PO SCH (09:20)
[2021-07-30] MEDS: Divalproex (24 HR) 500 MG TABLET PO SCH (19:44)
[2021-07-31] MEDS: *HR* Enoxaparin 40 MG/0.4 ML SYRINGE SQ SCH (05:11)
[2021-07-31] MEDS: Insulin LISPRO 300 UNITS/3 ML VIAL SUBQ SCH ×4 (07:42→19:47)
[2021-07-31] MEDS: predniSONE 20 MG TABLET PO SCH (08:21)
[2021-07-31] MEDS: Gabapentin 100 MG CAPSULE PO SCH ×2 (08:21→20:22)
[2021-07-31] MEDS: Azithromycin 250 MG TABLET PO SCH (08:21)
[2021-07-31] MEDS: Loratadine 10 MG TABLET PO SCH (08:21)
[2021-07-31] MEDS: amLODIPine 5 MG TABLET PO SCH (08:21)
[2021-07-31] MEDS: Aspirin 81 MG TAB.CHEW PO SCH (08:21)
[2021-07-31] MEDS: LOXAPINE SUCCINATE 5 MG PO SCH ×2 (08:22→19:47)
[2021-07-31] MEDS: Alogliptin Benzoate [Alogliptin] 25 MG PO SCH (08:22)
[2021-07-31 19:19] LABS: Influenza A PCR Negative (Negative); Influenza B PCR Negative (Negative); Resp. Syncytial Virus PCR Negative (Negative)
[2021-07-31 19:45] LABS: SARS-CoV-2 by PCR (In House) Negative (Negative)
[2021-07-31] MEDS: Divalproex (24 HR) 500 MG TABLET PO SCH (20:22)
[2021-08-01] MEDS: *HR* Enoxaparin 40 MG/0.4 ML SYRINGE SQ SCH (05:09)
[2021-08-01 07:37] VITALS: O2SAT 93
[2021-08-01] MEDS: Insulin LISPRO 300 UNITS/3 ML VIAL SUBQ SCH ×2 (08:05→12:40)
[2021-08-01] MEDS: Aspirin 81 MG TAB.CHEW PO SCH (08:06)
[2021-08-01] MEDS: Azithromycin 250 MG TABLET PO SCH (08:06)
[2021-08-01] MEDS: Loratadine 10 MG TABLET PO SCH (08:06)
[2021-08-01] MEDS: predniSONE 20 MG TABLET PO SCH (08:06)
[2021-08-01] MEDS: Gabapentin 100 MG CAPSULE PO SCH (08:06)
[2021-08-01] MEDS: amLODIPine 5 MG TABLET PO SCH (08:06)
[2021-08-01] MEDS: LOXAPINE SUCCINATE 5 MG PO SCH (08:12)
[2021-08-01] MEDS: Alogliptin Benzoate [Alogliptin] 25 MG PO SCH (08:12)
[2021-08-01 10:10] VITALS: BP 109/62; PULSE 80; TEMP 97.8
== END 2021-08-01 14:12 | disposition other institution (70) | DRG 190 ==
LOC: EMEROOARM 16:08 → 3BNU 16:08 → SUATTDRO 20:17 → 3BNU 20:49 → SUATTDRO 07-28 14:02
PROVIDERS: ADMIT Internal Medicine; ATTEND Internal Medicine